=== PATIENT | female | born 1985 | race Asian ===

== ENCOUNTER 2019-02-03 18:57 | Inpatient (IN) ==
[2019-02-03] MEDS ORDERED: OXYTOCIN 30 UNITS/500 ML BAG IV PRN (19:27)
[2019-02-03] MEDS: LACTATED RINGER'S 1,000 ML IV PRN ×2 (19:36→20:55)
[2019-02-03 20:01] LABS: Hematocrit (blood only) 34.4 % (37-47); Hemoglobin 11.8 g/dL (12.0-16.0); Mean Corpuscular Hemoglobin 32.5 pg (25-34); Mean Corpuscular Volume 94.8 fL (80-100); Mean Platelet Volume 11.8 fL (7.4-10.4); Platelet Count 118 K/uL (130-400); RDW Coefficient of Variation 12.9 % (11.5-14.5); RDW Standard Deviation 44.9 fL (36.4-46.3); Red Blood Count 3.63 M/uL (4.2-5.4); White Blood Count 12.18 K/uL (4.8-10.8)
[2019-02-03] MEDS ORDERED: NALOXONE HCL 1 MG in SODIUM CHLORIDE 0.9% 1000ML 1,000 ML IV PRN (20:03)
[2019-02-03] MEDS ORDERED: DiphenhydrAMINE HCL 50 MG/ML VIAL IV PRN (20:03)
[2019-02-03] MEDS ORDERED: NALBUPHINE HCL INJ 10 MG/ML AMP IV PRN (20:03)
[2019-02-03] MEDS ORDERED: fentaNYL 2MCG/ML ROPIV 1.25MG/ML 100 ML BAG EPI PRN (20:03)
[2019-02-03] MEDS ORDERED: ePHEDrine sulfate 50 MG/ML AMP IV PRN (20:03)
[2019-02-03] MEDS ORDERED: NALOXONE HCL 0.4 MG/1 ML VIAL/CARP IV PRN (20:03)
[2019-02-03] MEDS ORDERED: ONDANSETRON INJ 2 MG/ML 2 ML VIAL IV PRN (20:03)
[2019-02-03] MEDS ORDERED: ePHEDrine sulfate 50 MG/ML AMP ONE (20:04)
[2019-02-03] MEDS ORDERED: fentaNYL citrate 100 MCG/2 ML VIAL ONE (20:04)
[2019-02-03] MEDS ORDERED: fentaNYL 2MCG/ML ROPIV 1.25MG/ML 100 ML BAG EPI ONE (20:04)
[2019-02-03] MEDS ORDERED: BUPIVACAINE 0.25% 30 ML VIAL ONE (20:04)
--- NOTE | 2019-02-03 20:08 | Anesthesiology Consultation ---
Date of Service February 03, 2019 Assessment & Plan (1) Encounter for pre-operative examination: Chart Review Chart Review: Acceptable Risk for Labor Epidural Consults Requested none ASA ASA2 Proposed Anesthesia Anesthesia Type: Labor Epidural Risk / Benefits Reviewed With: PT / POA / Parent / Guardian, Accepts Plan and Informed Consent Obtained History Height/Weight Height: 5 ft 3 in Weight: 59.421 kg Allergies Allergy/AdvReac Type Severity Reaction Status Date / Time No Known Drug Allergies Allergy Unknown Verified 02/03/19 19:08 Medications Home Medications Medication Instructions Recorded Confirmed Last Taken PNV cmb#95-ferrous fumarate-FA 1 tab PO DAILY 02/03/19 02/03/19 02/03/19 08:00 [] calcium carbonate [Calcium 500] 500 mg PO DAILY 02/03/19 02/03/19 02/03/19 08:00 ferrous sulfate [iron] 325 mg PO DAILY 02/03/19 02/03/19 02/03/19 08:00 Active Medications Generic Name Dose Route Start Last Admin Trade Name Freq PRN Reason Stop Dose Admin Lactated Ringer's 1,000 mls @ 125 mls/hr 02/03/19 19:27 02/03/19 19:36 Lr IV 02/05/19 19:26 999 mls/hr .Q8H PRN Administration L&D Protocol Protocol Past Medical History Medical History History of varicella Vaginal Pap smear with LGSIL Exercise / Class Metabolic Activity II 4-5 Yardwork/Stairs/Walk up hill Past Family History Family History Other No pertinent family history Past Surgical History Surgical History No pertinent past surgical history Past Anesthesia History No Hx of Anesthesia Complications and No Family Hx of Anesthesia Complications History of PONV No Hx of PONV and No Hx of Motion Sickness Social History Smoking Status: Never smoker Hx Alcohol Use: No Hx Substance Use: No Physical Exam Vital Signs Last Vital Signs Temp 99.0 F 02/03/19 19:15 Pulse 75 02/03/19 19:15 Resp 18 02/03/19 19:15 BP 108/64 02/03/19 19:15 ENMT Mouth: no dentition abnormality Thyromental Distance: > or= 3.5 Finger Breadths Mallampati Class: II Neck normal visual inspection Respiratory normal respiratory effort Auscultation: lungs clear to auscultation bilaterally Cardiovascular Rate/Rhythm: regular rate and regular rhythm Testing Laboratory Results 02/03/19 19:52
[2019-02-03 20:21] LABS: Mean Corpuscular Hgb Conc 34.3 g/dL (32-36)
[2019-02-04] MEDS: LACTATED RINGER'S 1,000 ML IV PRN (03:53)
[2019-02-04] MEDS ORDERED: OXYTOCIN 30 UNITS/500 ML BAG IV PRN ×2 (06:54→11:14)
--- NOTE | 2019-02-04 06:57 | History & Physical Report ---
Date of Service February 04, 2019 Term primip GBS neg presents in labor. Epidural requested at 4cm. Has progressed to 7cm with bulging membranes Assessment & Plan (1) Normal labor: Start pitocin at this stage as CTX have spaced after epidural AROM done. History of Present Illness Primary Care Provider: NO PCP Allergies Allergy/AdvReac Type Severity Reaction Status Date / Time No Known Drug Allergies Allergy Unknown Verified 02/03/19 19:08 Home Medications Home Medications Medication Instructions Recorded Confirmed Type PNV cmb#95-ferrous fumarate-FA 1 tab PO DAILY 02/03/19 02/03/19 History [] calcium carbonate [Calcium 500] 500 mg PO DAILY 02/03/19 02/03/19 History ferrous sulfate [iron] 325 mg PO DAILY 02/03/19 02/03/19 History Patient History Medical History History of varicella Vaginal Pap smear with LGSIL Surgical History No pertinent past surgical history Family History Other No pertinent family history Social History (Updated 09/17/18 @ 06:33 by Anna Hopson) Preferred Language: [place] Communication Ability: Effective Beliefs That Will Affect Care: None marital status: [place] Current Living Situation: Spouse Current Living Situation Comment: condo Other Information That Helps Us Care for You: No Feels Safe at Home: Yes Safety Concerns: Feels Safe At This Time Smoking Status: Never smoker Hx Alcohol Use: No Hx Substance Use: No Physical Exam Constitutional: WD/WN, vitals as above Respiratory: normal respiratory effort, lungs clear to auscultation Cardiovascular: RRR, no murmur, no edema Genitourinary: Manual OB Exam: + cervical dilation 7 cm, + cervical effacement 90% and + station -1 OB Exam Monitor Tracing: + external FHT monitor used Results & Data Vital Signs (Past 12 Hours) Vital Signs Temp Pulse Resp BP Pulse Ox 02/04/19 06:53 81 101/61 02/04/19 06:51 95 H 98 02/04/19 06:46 78 96 02/04/19 06:42 104 H 85/54 L 02/04/19 06:41 82 97 02/04/19 06:39 98 H 77/51 L 02/04/19 06:36 82 97 02/04/19 06:31 81 97 02/04/19 06:30 16 02/04/19 06:26 104 H 77/48 L 97 02/04/19 06:21 104 H 96 02/04/19 06:16 100 H 98 02/04/19 06:11 94 H 89/53 L 98 02/04/19 06:06 78 98 02/04/19 06:01 83 18 98 02/04/19 05:56 89 86/50 L 98 02/04/19 05:51 89 98 02/04/19 05:46 80 98 02/04/19 05:43 90 85/47 L 02/04/19 05:41 79 98 02/04/19 05:36 79 98 02/04/19 05:31 81 98 02/04/19 05:30 16 02/04/19 05:26 99 H 83/46 L 98 02/04/19 05:21 99 H 98 02/04/19 05:16 79 98 02/04/19 05:12 82 82/48 L 02/04/19 05:11 85 99 02/04/19 05:06 77 98 02/04/19 05:01 76 98 02/04/19 05:00 18 02/04/19 04:57 82 90/54 L 02/04/19 04:56 78 98 02/04/19 04:51 77 97 02/04/19 04:46 77 97 02/04/19 04:45 16 02/04/19 04:41 77 99/54 L 97 02/04/19 04:36 77 96 02/04/19 04:31 77 97 02/04/19 04:27 77 90/51 L 02/04/19 04:26 76 97 02/04/19 04:21 79 97 02/04/19 04:16 83 97 02/04/19 04:12 85 81/47 L 02/04/19 04:11 86 98 02/04/19 04:06 81 98 02/04/19 04:05 16 02/04/19 04:01 77 98 02/04/19 03:56 82 80/46 L 98 02/04/19 03:51 90 99 02/04/19 03:46 77 98 02/04/19 03:41 92 H 82/47 L 98 02/04/19 03:40 98.8 F 18 02/04/19 03:36 93 H 99 02/04/19 03:31 74 98 02/04/19 03:26 100 H 85/48 L 99 02/04/19 03:21 77 98 02/04/19 03:16 89 98 02/04/19 03:11 91 H 89/52 L 98 02/04/19 03:06 78 98 02/04/19 03:01 75 98 02/04/19 03:00 16 02/04/19 02:56 78 85/52 L 98 02/04/19 02:51 96 H 98 02/04/19 02:46 76 98 02/04/19 02:42 72 90/53 L 02/04/19 02:41 72 98 02/04/19 02:36 97 H 98 02/04/19 02:31 76 98 02/04/19 02:30 18 02/04/19 02:27 77 87/52 L 02/04/19 02:26 72 98 02/04/19 02:21 73 98 02/04/19 02:16 70 98 02/04/19 02:12 70 95/52 L 02/04/19 02:11 74 98 02/04/19 02:06 86 98 02/04/19 02:01 81 98 02/04/19 01:56 85 94/51 L 98 02/04/19 01:51 74 98 02/04/19 01:46 74 98 02/04/19 01:45 98.6 F 18 02/04/19 01:42 76 92/51 L 02/04/19 01:41 72 98 02/04/19 01:36 67 98 02/04/19 01:31 72 98 02/04/19 01:30 16 02/04/19 01:26 71 94/52 L 98 02/04/19 01:21 80 98 02/04/19 01:16 71 98 02/04/19 01:11 73 103/58 L 98 02/04/19 01:06 69 98 02/04/19 01:01 67 98 02/04/19 00:57 71 98/57 L 02/04/19 00:56 73 98 02/04/19 00:51 74 98 02/04/19 00:46 86 98 02/04/19 00:41 95 H 89/52 L 98 02/04/19 00:36 87 99 02/04/19 00:31 79 99 02/04/19 00:30 18 02/04/19 00:26 73 91/50 L 99 02/04/19 00:21 88 98 02/04/19 00:16 75 98 02/04/19 00:12 69 98/53 L 02/04/19 00:11 74 99 02/04/19 00:06 82 99 02/04/19 00:01 87 100 02/04/19 00:00 98.6 F 18 02/03/19 23:56 82 99/58 L 99 02/03/19 23:54 80 91/54 L 02/03/19 23:51 91 H 99 02/03/19 23:46 88 98 02/03/19 23:41 91 H 99 02/03/19 23:36 80 98 02/03/19 23:31 82 98 02/03/19 23:26 101 H 99 02/03/19 23:25 80 101/59 L 02/03/19 23:21 86 99 02/03/19 23:16 78 99 02/03/19 23:15 93 H 86/55 L 02/03/19 23:11 81 100 02/03/19 23:06 90 99 02/03/19 23:05 75 95/56 L 02/03/19 23:01 94 H 98 02/03/19 23:00 18 02/03/19 22:56 91 H 98 02/03/19 22:55 78 91/55 L 02/03/19 22:51 94 H 98 02/03/19 22:46 77 98 02/03/19 22:44 90 89/56 L 02/03/19 22:41 75 98 02/03/19 22:36 79 99 02/03/19 22:34 85 88/55 L 02/03/19 22:31 79 98 02/03/19 22:30 18 02/03/19 22:26 74 98 02/03/19 22:24 81 91/55 L 02/03/19 22:21 80 98 02/03/19 22:16 86 98 02/03/19 22:14 82 89/54 L 02/03/19 22:11 73 98 02/03/19 22:06 75 98 02/03/19 22:05 85 98/56 L 02/03/19 22:01 80 99 02/03/19 22:00 16 02/03/19 21:56 85 99 02/03/19 21:55 74 94/57 L 02/03/19 21:51 80 98 02/03/19 21:46 80 98 02/03/19 21:44 89 89/55 L 02/03/19 21:41 82 97 02/03/19 21:36 90 90/54 L 97 02/03/19 21:31 75 97 02/03/19 21:30 18 02/03/19 21:26 78 97 02/03/19 21:24 76 94/56 L 02/03/19 21:21 80 97 02/03/19 21:16 77 97 02/03/19 21:14 77 98/61 L 02/03/19 21:11 91 H 97 02/03/19 21:06 74 98 02/03/19 21:04 76 96/60 L 02/03/19 21:01 77 98 02/03/19 21:00 18 02/03/19 20:56 84 98 02/03/19 20:53 75 98/63 L 02/03/19 20:51 76 98 02/03/19 20:50 85 92/59 L 02/03/19 20:47 72 89/53 L 02/03/19 20:46 74 97 02/03/19 20:44 83 97/57 L 02/03/19 20:43 74 99/59 L 02/03/19 20:41 80 89/55 L 97 02/03/19 20:40 98.6 F 18 02/03/19 20:39 73 93/55 L 02/03/19 20:38 71 99/62 L 02/03/19 20:37 69 91/52 L 02/03/19 20:36 71 82/46 L 97 02/03/19 20:32 76 114/62 02/03/19 20:31 76 98 02/03/19 20:29 82 127/69 91 02/03/19 20:26 86 97 02/03/19 20:21 78 99 02/03/19 20:16 84 100 02/03/19 20:11 81 121/66 02/03/19 20:09 180 H 89 L 02/03/19 19:15 99.0 F 75 18 108/64 02/03/19 19:13 99.0 F 75 18 102/64
--- NOTE | 2019-02-04 09:25 | Labor Progress Brief Note ---
Date of Service February 04, 2019 Subjective I have taken over care of patient, she is feeling increased pressure and urge to have bowel movement with contractions. FHT Cat 1 [place] Q 2 min. SVE complete/+1 to +2 station Will begin to push. Anticipate . Results & Data Vital Signs (Past 12 Hours) Vital Signs Temp Pulse Resp BP Pulse Ox 02/04/19 09:21 88 98 02/04/19 09:16 92 H 97 02/04/19 09:13 76 99/61 L 02/04/19 09:11 76 98 02/04/19 09:06 72 97 02/04/19 09:03 76 124/66 02/04/19 09:01 75 98 02/04/19 08:56 81 94/56 L 97 02/04/19 08:51 71 97 02/04/19 08:46 71 97 02/04/19 08:42 73 102/59 L 02/04/19 08:41 68 97 02/04/19 08:36 68 97 02/04/19 08:31 75 97 02/04/19 08:26 91 H 93/50 L 97 02/04/19 08:21 88 98 02/04/19 08:16 85 97 02/04/19 08:11 95 H 81/51 L 98 02/04/19 08:06 78 96 02/04/19 08:01 79 97 02/04/19 07:57 82 89/50 L 02/04/19 07:56 87 97 02/04/19 07:51 89 96 02/04/19 07:46 86 97 02/04/19 07:41 90 80/50 L 97 02/04/19 07:36 75 97 02/04/19 07:31 76 98 02/04/19 07:27 76 107/58 L 02/04/19 07:26 77 98 02/04/19 07:21 87 99 02/04/19 07:16 85 99 02/04/19 07:12 74 103/55 L 02/04/19 07:11 76 98 02/04/19 07:06 89 99 02/04/19 07:01 77 99 02/04/19 06:56 79 98/56 L 99 02/04/19 06:53 81 101/61 02/04/19 06:52 37.1 C 18 02/04/19 06:51 95 H 98 02/04/19 06:46 78 96 02/04/19 06:42 104 H 85/54 L 02/04/19 06:41 82 97 02/04/19 06:39 98 H 77/51 L 02/04/19 06:36 82 97 02/04/19 06:31 81 97 02/04/19 06:30 16 02/04/19 06:26 104 H 77/48 L 97 02/04/19 06:21 104 H 96 02/04/19 06:16 100 H 98 02/04/19 06:11 94 H 89/53 L 98 02/04/19 06:06 78 98 02/04/19 06:01 83 18 98 02/04/19 05:56 89 86/50 L 98 02/04/19 05:51 89 98 02/04/19 05:46 80 98 02/04/19 05:43 90 85/47 L 02/04/19 05:41 79 98 02/04/19 05:36 79 98 02/04/19 05:31 81 98 02/04/19 05:30 16 02/04/19 05:26 99 H 83/46 L 98 02/04/19 05:21 99 H 98 02/04/19 05:16 79 98 02/04/19 05:12 82 82/48 L 02/04/19 05:11 85 99 02/04/19 05:06 77 98 02/04/19 05:01 76 98 02/04/19 05:00 18 02/04/19 04:57 82 90/54 L 02/04/19 04:56 78 98 02/04/19 04:51 77 97 02/04/19 04:46 77 97 02/04/19 04:45 16 02/04/19 04:41 77 99/54 L 97 02/04/19 04:36 77 96 02/04/19 04:31 77 97 02/04/19 04:27 77 90/51 L 02/04/19 04:26 76 97 02/04/19 04:21 79 97 02/04/19 04:16 83 97 02/04/19 04:12 85 81/47 L 02/04/19 04:11 86 98 02/04/19 04:06 81 98 02/04/19 04:05 16 02/04/19 04:01 77 98 02/04/19 03:56 82 80/46 L 98 02/04/19 03:51 90 99 02/04/19 03:46 77 98 02/04/19 03:41 92 H 82/47 L 98 02/04/19 03:40 37.1 C 18 02/04/19 03:36 93 H 99 02/04/19 03:31 74 98 02/04/19 03:26 100 H 85/48 L 99 02/04/19 03:21 77 98 02/04/19 03:16 89 98 02/04/19 03:11 91 H 89/52 L 98 02/04/19 03:06 78 98 02/04/19 03:01 75 98 02/04/19 03:00 16 02/04/19 02:56 78 85/52 L 98 02/04/19 02:51 96 H 98 02/04/19 02:46 76 98 02/04/19 02:42 72 90/53 L 02/04/19 02:41 72 98 02/04/19 02:36 97 H 98 02/04/19 02:31 76 98 02/04/19 02:30 18 02/04/19 02:27 77 87/52 L 02/04/19 02:26 72 98 02/04/19 02:21 73 98 02/04/19 02:16 70 98 02/04/19 02:12 70 95/52 L 02/04/19 02:11 74 98 02/04/19 02:06 86 98 02/04/19 02:01 81 98 02/04/19 01:56 85 94/51 L 98 02/04/19 01:51 74 98 02/04/19 01:46 74 98 02/04/19 01:45 37.0 C 18 02/04/19 01:42 76 92/51 L 02/04/19 01:41 72 98 02/04/19 01:36 67 98 02/04/19 01:31 72 98 02/04/19 01:30 16 02/04/19 01:26 71 94/52 L 98 02/04/19 01:21 80 98 02/04/19 01:16 71 98 02/04/19 01:11 73 103/58 L 98 02/04/19 01:06 69 98 02/04/19 01:01 67 98 02/04/19 00:57 71 98/57 L 02/04/19 00:56 73 98 02/04/19 00:51 74 98 02/04/19 00:46 86 98 02/04/19 00:41 95 H 89/52 L 98 02/04/19 00:36 87 99 02/04/19 00:31 79 99 02/04/19 00:30 18 02/04/19 00:26 73 91/50 L 99 02/04/19 00:21 88 98 02/04/19 00:16 75 98 02/04/19 00:12 69 98/53 L 02/04/19 00:11 74 99 02/04/19 00:06 82 99 02/04/19 00:01 87 100 02/04/19 00:00 37.0 C 18 02/03/19 23:56 82 99/58 L 99 02/03/19 23:54 80 91/54 L 02/03/19 23:51 91 H 99 02/03/19 23:46 88 98 02/03/19 23:41 91 H 99 02/03/19 23:36 80 98 02/03/19 23:31 82 98 02/03/19 23:26 101 H 99 02/03/19 23:25 80 101/59 L 02/03/19 23:21 86 99 02/03/19 23:16 78 99 02/03/19 23:15 93 H 86/55 L 02/03/19 23:11 81 100 02/03/19 23:06 90 99 02/03/19 23:05 75 95/56 L 02/03/19 23:01 94 H 98 02/03/19 23:00 18 02/03/19 22:56 91 H 98 02/03/19 22:55 78 91/55 L 02/03/19 22:51 94 H 98 02/03/19 22:46 77 98 02/03/19 22:44 90 89/56 L 02/03/19 22:41 75 98 02/03/19 22:36 79 99 02/03/19 22:34 85 88/55 L 02/03/19 22:31 79 98 02/03/19 22:30 18 02/03/19 22:26 74 98 02/03/19 22:24 81 91/55 L 02/03/19 22:21 80 98 02/03/19 22:16 86 98 02/03/19 22:14 82 89/54 L 02/03/19 22:11 73 98 02/03/19 22:06 75 98 02/03/19 22:05 85 98/56 L 02/03/19 22:01 80 99 02/03/19 22:00 16 02/03/19 21:56 85 99 02/03/19 21:55 74 94/57 L 02/03/19 21:51 80 98 02/03/19 21:46 80 98 02/03/19 21:44 89 89/55 L 02/03/19 21:41 82 97 02/03/19 21:36 90 90/54 L 97 02/03/19 21:31 75 97 02/03/19 21:30 18 02/03/19 21:26 78 97 02/03/19 21:24 76 94/56 L
--- NOTE | 2019-02-04 10:54 | Delivery Summary ---
Vaginal Delivery Summary Date of Service February 04, 2019 Vaginal Delivery Summary Vaginal Delivery Summary: Pre-delivery diagnoses: 33yo @ 39 2/7, spontaneous labor Post-delivery diagnoses: same, 2nd degree perineal laceration Procedure: spontaneous vaginal delivery, repair of 2nd degree perineal laceration Surgeon: Estee Jones DO Complications: none Findings: Viable male . Apgars: 8/9 . Weight pending, please see nursery records. Estimated blood loss: 300ml Description of delivery: The patient progressed to complete with epidural anesthesia. She then began to push. She spontaneously vaginally delivered a viable male from the cephalic presentation. The head delivered in TRA position. The anterior shoulder delivered, followed by the posterior shoulder, followed by the body. Nuchal cord x 1, easily reduced. The baby was placed on mother's abdomen and a spontaneous cry was heard. Delayed cord clamping was employed, and the cord was doubly clamped and cut. Cord blood was obtained. The placenta was delivered spontaneously intact with a 3-vessel cord. The uterus and vagina were swept of clots and debris. IV pitocin was given. The uterus became firm. The cervix, vagina, and perineum were inspected and a 2nd degree p erineal laceration was noted and repaired in standard fashion with 3-0 Vicryl. Excellent hemostasis was observed. The mother and baby are recovering in stable and good condition in the room. Sponge, needle and instrument counts were correct x 2. Estee Jones DO [facility]
[2019-02-04] MEDS ORDERED: HYDROCORTISONE ACETATE 25 MG SUPP PR PRN (11:14)
[2019-02-04] MEDS ORDERED: ACETAMINOPHEN 325 MG TAB PO PRN (11:14)
[2019-02-04] MEDS ORDERED: SUPERCREAM 0.870% 15 GM JAR EXT PRN (11:14)
[2019-02-04] MEDS ORDERED: bisacodyL 10 MG SUPP PR PRN (11:14)
[2019-02-04] MEDS ORDERED: BENZOCAINE 20% AER SPR 82.5 GM CAN EXT PRN (11:14)
--- NOTE | 2019-02-04 11:27 | Anesthesia Procedure Note ---
Date of Service February 04, 2019 Anesthesia Post Epidural Note Vital Signs Vital Signs: Temp Pulse Resp BP Pulse Ox 37.1 C 98 H 18 89/56 L 98 02/04/19 06:52 02/04/19 11:26 02/04/19 06:52 02/04/19 11:26 02/04/19 11:01 Notes Mental Status: alert / awake / arousable and participated in evaluation Patient Amnestic to Procedure: Yes Nausea / Vomiting: adequately controlled Pain: adequately controlled Airway Patency, RR, SpO2: stable & adequate BP & HR: stable & adequate Hydration State: stable & adequate Anesthetic Complications: no major complications apparent and Pt Satisfied with anesthetic care
[2019-02-04] MEDS: IBUPROFEN 600 MG TAB PO PRN ×2 (13:05→20:42)
[2019-02-04] MEDS: DOCUSATE SODIUM 100 MG CAP PO SCH (20:42)
[2019-02-04] MEDS: OXYCODONE/ACETAMINOPHEN 5mg/325mg TAB PO PRN (20:42)
[2019-02-05] MEDS ORDERED: bisacodyL 5 MG TABEC PO ONE (02:07)
[2019-02-05] MEDS: OXYCODONE/ACETAMINOPHEN 5mg/325mg TAB PO PRN (02:11)
[2019-02-05 06:17] LABS: Hemoglobin 10.8 g/dL (12.0-16.0); Mean Corpuscular Hemoglobin 32.8 pg (25-34); Mean Corpuscular Hgb Conc 33.8 g/dL (32-36); Mean Corpuscular Volume 97.3 fL (80-100); Mean Platelet Volume 10.5 fL (7.4-10.4); Platelet Count 111 K/uL (130-400); RDW Coefficient of Variation 13.1 % (11.5-14.5); RDW Standard Deviation 46.1 fL (36.4-46.3); Red Blood Count 3.29 M/uL (4.2-5.4); White Blood Count 13.24 K/uL (4.8-10.8)
--- NOTE | 2019-02-05 07:04 | Obstetrical Progress Note ---
Date of Service February 05, 2019 Assessment & Plan (1) Encounter for care and examination after delivery: with hx LGSIL on pap; PPD1 s/p 02/04. 1) - recommended cold compresses to help with labial swelling and discomfort, pain control with tylenol and ibuprofen - continue sitz baths and sprays to aid burning with urination - colace, senna, miralax to decrease constipation - Encouraged ambulation as tolerated - continue supportive care (2) Prolonged , antepartum: Supervising Physician Co-Signing Physician Notes Resident Physician Supervision Note: I was present with Dr. Tracy during the history and exam. I discussed the case with the resident and agree with the findings and plan as documented in the note. Any exceptions or clarifications are listed here: PPD#1 doing well. Continue care. Documented By: Estee Jones, DO Subjective Concerned about labial swelling today. Still experiencing discomfort from it and having some burning with urination. Feels constipated, has passed gas but no BM yet. Denies any other concerns. Review of Systems Constitutional: + fatigue; no fever and no chills Respiratory: no cough and no dyspnea Cardiovascular: no chest pain, no syncope, no edema and no calf pain Gastrointestinal: + constipation; no abdominal pain, no nausea, no vomiting, no cramping and no diarrhea/loose stools Genitourinary: + dysuria; no difficulty urinating Neurologic: no headache(s) Physical Exam 2 Constitutional: well developed and well nourished Respiratory: normal respiratory effort; no respiratory distress, no labored breathing and no cough Auscultation: no crackles, no rales, no rhonchi and no wheezes Cardiovascular: Rate/Rhythm: regular rate and regular rhythm Heart Sounds: no gallop, no murmur and no cardiac rub Extremities: no pedal edema Gastrointestinal (Abdomen): Inspection/Auscultation: normal bowel sounds; abdomen not distended Percussion/Palpation: abdomen soft; no guarding Musculoskeletal: no tenderness to palpation of calves bilaterally Genitourinary: Uterus small and firm, palpable in midline 2-3 cm below level of umbilicus, some tenderness to palpation. Results & Data Vital Signs (Past 12 Hours) Vital Signs Temp Pulse Resp BP 02/05/19 00:30 37.0 C 80 20 100/61 02/04/19 19:00 36.6 C 85 18 99/62 L 02/05/19 Range/Units 06:09 WBC 13.24 H (4.8-10.8) K/uL RBC 3.29 L (4.2-5.4) M/uL Hgb 10.8 L (12.0-16.0) g/dL Hct 32.0 L (37-47) % MCV 97.3 (80-100) fL MCH 32.8 (25-34) pg MCHC 33.8 (32-36) g/dL RDW Std Deviation 46.1 (36.4-46.3) fL RDW Coeff of [place] 13.1 (11.5-14.5) % Plt Count 111 L (130-400) K/uL MPV 10.5 H (7.4-10.4) fL Resident Activity Tracking Resident Involvement: Resident Care Provided Care Provided: Adult Hospital Medicine and OB Delivery
[2019-02-05] MEDS: PRENATAL VITAMIN 1 TAB PO SCH (08:58)
[2019-02-05] MEDS: DOCUSATE SODIUM 100 MG CAP PO SCH ×2 (08:58→21:32)
[2019-02-05] MEDS: IBUPROFEN 600 MG TAB PO PRN (08:58)
[2019-02-05] MEDS ORDERED: DIPHTHERIA/TETANUS/PERTUSSIS 0.5 ML SYR/VIAL IM ONE (09:00)
[2019-02-05] MEDS ORDERED: bisacodyL 5 MG TABEC PO SCH (20:00)
[2019-02-06 06:32] LABS: Hematocrit (blood only) 31.9 % (37-47); Hemoglobin 10.9 g/dL (12.0-16.0)
--- NOTE | 2019-02-06 07:35 | Obstetrical Progress Note ---
Date of Service February 06, 2019 Assessment & Plan (1) Encounter for care and examination after delivery: with hx LGSIL on pap; PPD2 s/p 02/04. 1) - recommended cold compresses to help with labial swelling and discomfort, pain control with tylenol and ibuprofen - continue sitz baths and sprays to aid burning with urination - colace, senna, miralax to decrease constipation - Encouraged ambulation as tolerated - continue supportive care - discussed discharge instructions, all questions answered (2) Prolonged , antepartum: Supervising Physician Co-Signing Physician Notes Resident Physician Supervision Note: I was present with Dr. Tracy during the history and exam. I discussed the case with the resident and agree with the findings and plan as documented in the note. Any exceptions or clarifications are listed here: Doing well, ready for d/c home. f/u 6wk pp check, instructions reviewed. Documented By: Jena Boyer MD, FACOG Subjective Feeling improvement in labial pain and swelling this morning with Sitz baths Q6 and cold compresses. having uterine contractions and cramping with but pain is tolerable and controlled with ibuprofen. Recommended scheduling tylenol and ibuprofen if pain persists. Review of Systems Constitutional: + fatigue; no fever and no chills Respiratory: no cough and no dyspnea Cardiovascular: no chest pain, no edema and no calf pain Gastrointestinal: + constipation; no abdominal pain, no nausea, no vomiting, n o cramping and no diarrhea/loose stools Genitourinary: + dysuria; no difficulty urinating Physical Exam Constitutional: well developed and well nourished Respiratory: normal respiratory effort; no respiratory distress, no labored breathing and no cough Auscultation: no crackles, no rales, no rhonchi and no wheezes Cardiovascular: Rate/Rhythm: regular rate and regular rhythm Heart Sounds: no gallop, no murmur and no cardiac rub Extremities: no pedal edema Gastrointestinal (Abdomen): Inspection/Auscultation: normal bowel sounds; abdomen not distended Percussion/Palpation: abdomen soft; no guarding Genitourinary: OB Exam Abdomen: + fundal height (firm, nontender, palpable at umbilicus) Results & Data Vital Signs (Past 12 Hours) Vital Signs Temp Pulse Resp BP 02/05/19 23:30 36.6 C 52 L 18 100/65 02/06/19 Range/Units 06:10 Hgb 10.9 L (12.0-16.0) g/dL Hct 31.9 L (37-47) % Resident Activity Tracking Resident Involvement: Resident Care Provided Care Provided: Adult Hospital Medicine and OB Delivery
[2019-02-06] MEDS: DOCUSATE SODIUM 100 MG CAP PO SCH (07:40)
[2019-02-06] MEDS: PRENATAL VITAMIN 1 TAB PO SCH (07:40)
== END 2019-02-06 12:34 | disposition home or self-care (01) | DRG 807 ==
LOC: OPB 18:57 → 4S1 18:58 → 4S2 02-04 13:38